=== PATIENT | female | born 1945 | race Two or more races ===

== ENCOUNTER 2016-08-07 16:58 | Emergency (ER) | payer OTHER, MEDICAID ==
[~2016-08-07] VITALS: Ht 154.9 cm; Wt 59.0 kg
[2016-08-07 17:08] VITALS: BP 150/47
--- NOTE | 2016-08-07 17:35 | Emergency Room Report ---
History of Present Illness General Chief Complaint: Head Injury Present Illness HPI 70 y/o female c/o lac on scalp x 4 hours ago. States she was rolling out of bed and scraped her head against the edge of her night stand. States she didn't really hit her head, more so, she just caught the edge of it. Denies any LOC or any other injury / pain or taking blood thinners. Denies any lower extremity weakness, incontinence, foot drop, saddle anethesia, numbness, paralysis, n/v/f/ c/d, abd pain, back pain, neck pain, photophobia, phonophobia, CP, SOB or headache. Allergies: Coded Allergies: No Known Allergies (Unverified , 08/07/16) Patient History Past Medical History: see triage record Past Surgical History: none Pertinent Family History: none Immunizations: UTD Reviewed Nursing Documentation: PMH: Agreed, PSxH: Agreed Nursing Documentation-PMH Hx Hypertension: No - RA Review of Systems All Other Systems: negative except mentioned in HPI Physical Exam Vital Signs Date Time Temp Pulse Resp B/P Pulse Ox O2 Delivery O2 Flow Rate FiO2 08/07/16 17:08 98.1 67 20 150/47 100 Room Air Sp02 EP Interpretation: reviewed, normal General Appearance: no apparent distress, alert, GCS 15, non-toxic Head: normocephalic Eyes: bilateral eye PERRL, bilateral eye normal inspection ENT: hearing grossly normal, normal pharynx, no angioedema, normal voice, TMs + canals normal Neck: full range of motion, supple, supple/symm/no masses Respiratory: chest non-tender, lungs clear, normal breath sounds, speaking full sentences Cardiovascular #1: regular rate, rhythm, no edema Musculoskeletal: back normal, gait/station normal, normal range of motion, non- tender Neurologic: alert, oriented x3, responsive, 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 Judge my supervising physician with whom patient management has been discussed with. Diagnostic Impression: Primary Impression: Laceration of scalp Qualified Codes: S01.01XA - Laceration without foreign body of scalp, initial encounter ER Course Pt. presents to the ED c/o scalp laceration Ddx considered but are not limited to laceration, contusion, abrasion, puncture , LOC, cerebral hemorrhage, spinal fx, hip fracture Vital signs: are WNL, pt. is afebrile H&PE are most consistent with laceration of scalp ORDERS: none required at this time, the diagnosis is clinical ED INTERVENTIONS: Wound irrigated with copious amount of NS. Skin akash x 3 applied. DISCHARGE: At this time pt. is stable for d/c to home. Will provide printed patient care instructions, and any necessary prescriptions. Care plan and follow up instructions have been discussed with the patient prior to discharge. Last Vital Signs Date Time Temp Pulse Resp B/P Pulse Ox O2 Delivery O2 Flow Rate FiO2 08/07/16 18:08 68 16 146/72 98 Room Air 08/07/16 17:08 98.1 Status: unchanged Disposition: HOME, SELF-CARE Condition: Stable Patient Instructions: Stitches, Akash, or Adhesive Wound Closure Additional Instructions: Keep wound clean and dry. Follow up with PCP in 3-5 days for wound check. Avoid sun exposure to minimize scarring. Patient advised that they can take a shower or bath, but be sure to pat the area dry with a towel afterward. Patient should come back sooner if they experience any red areas that get bigger, more swollen , have pus draining from wound, or if the site becomes more painful. Advised patient to go to the ER immediately if you experience a headache that is sudden and becomes severe within a few seconds or minutes, or that could be described as "the worst headache of your life", or if headache is severe and occurs with a fever or stiff neck, occurs with a seizure, personality changes, confusion, or passing out, begins quickly after strenuous exercise or minor injury, or if headache is new and occurs with weakness, numbness, or difficulty seeing. LAMBERTO BENITEZ August 07, 2016 17:35
[2016-08-07 18:08] VITALS: BP 146/72
== END 2016-08-07 18:11 | disposition home or self-care (01) ==
LOC: EMR 17:20
DX: S01.01XA Laceration without foreign body of scalp, initial encounter (principal); W22.8XXA Striking against or struck by other objects, initial encounter; Y93.9 Activity, unspecified; Y92.9 Unspecified place or not applicable

== ENCOUNTER 2016-08-13 10:36 | Emergency (ER) | payer OTHER, MEDICAID ==
[~2016-08-13] VITALS: Ht 157.5 cm; Wt 60.8 kg
[2016-08-13 10:51] VITALS: BP 123/81
[2016-08-13 10:57] VITALS: BP 123/81
--- NOTE | 2016-08-16 13:33 | Emergency Room Report ---
History of Present Illness General Chief Complaint: Wound Recheck/Suture Removal Source: Patient Present Illness HPI Patient presents with recheck of her scalp laceration This was stapled 4 days ago at this facility denies any discharge denies any headache Denies any visual changes Feels that the laceration is healing well This was initially lacerated on a cabinet door Patient presents for evaluation Allergies: Coded Allergies: No Known Allergies (Unverified , 08/07/16) Patient History Past Medical History: see triage record Pertinent Family History: none Reviewed Nursing Documentation: PMH: Agreed, PSxH: Agreed Review of Systems All Other Systems: negative except mentioned in HPI Physical Exam Vital Signs Date Time Temp Pulse Resp B/P Pulse Ox O2 Delivery O2 Flow Rate FiO2 08/13/16 10:43 98.1 76 16 123/81 99 Room Air Sp02 EP Interpretation: reviewed, normal General Appearance: well appearing, no apparent distress Head: normocephalic, other - Akash in place right top parietal area Eyes: bilateral eye EOMI, bilateral eye PERRL ENT: normal pharynx, no angioedema Neck: supple Respiratory: normal inspection, lungs clear Cardiovascular #1: normal inspection Musculoskeletal: normal inspection Neurologic: alert, oriented x3, responsive Skin: other - Laceration healing well akash in place no fluctuance Medical Decision Making Diagnostic Impression: Primary Impression: Encounter for wound re-check ER Course The area in question appears to be healing well this is only 4 days out and there requires to be further healing Akash were left in place and patient will return in the next 4 days for removal Last Vital Signs Date Time Temp Pulse Resp B/P Pulse Ox O2 Delivery O2 Flow Rate FiO2 08/13/16 10:57 98.1 16 123/81 99 Room Air 08/13/16 10:43 76 Status: unchanged Disposition: HOME, SELF-CARE Condition: Stable Referrals: [facility],REFERRING (PCP) Patient Instructions: Wound Check Additional Instructions: The area appears to be healing well, please allow 5 more days for a full improvement and return for staple removal GIANCARLO HENDERSON D.O. August 16, 2016 13:33
== END 2016-08-13 10:57 | disposition home or self-care (01) ==
LOC: EMR 10:45
DX: S01.01XD Laceration without foreign body of scalp, subsequent encounter (principal); X58.XXXD Exposure to other specified factors, subsequent encounter; Y99.9 Unspecified external cause status
CPT/HCPCS: 99281

== ENCOUNTER 2016-08-16 14:59 | Emergency (ER) | payer OTHER, MEDICAID ==
[~2016-08-16] VITALS: Ht 157.5 cm; Wt 60.8 kg
[2016-08-16 15:11] VITALS: BP 149/74
[2016-08-16] MEDS ORDERED: TYLENOL325 MG ORAL (15:21)
[2016-08-16 15:27] VITALS: BP 149/74
--- NOTE | 2016-08-18 08:03 | Emergency Room Report ---
History of Present Illness General Chief Complaint: Pain Source: Patient Present Illness HPI Patient presents for staple removal Reports that she had initial laceration to the scalp from a cabinet While here the patient also states that since the fall she had left knee pain Back pain Right hip pain Patient has been ambulatory Denies any chest pain or shortness of breath Denies any focal weakness Allergies: Coded Allergies: No Known Allergies (Unverified , 08/07/16) Patient History Past Medical History: see triage record Pertinent Family History: none Reviewed Nursing Documentation: PMH: Agreed, PSxH: Agreed Review of Systems All Other Systems: negative except mentioned in HPI Physical Exam Vital Signs Date Time Temp Pulse Resp B/P Pulse Ox O2 Delivery O2 Flow Rate FiO2 08/16/16 15:04 98.4 75 15 149/74 98 Room Air Sp02 EP Interpretation: reviewed, normal General Appearance: well appearing, no apparent distress Head: normocephalic - [address] healing well Eyes: bilateral eye EOMI, bilateral eye PERRL ENT: hearing grossly normal, normal pharynx, TMs + canals normal, uvula midline Neck: full range of motion, supple, no meningismus, no bony tend Respiratory: lungs clear, normal breath sounds, no rhonchi, no respiratory distress, no retraction, no accessory muscle use Cardiovascular #1: normal peripheral pulses, regular rate, rhythm, no edema, no gallop, no JVD, no murmur Gastrointestinal: normal bowel sounds, non tender, soft, no mass, no organomegaly, non-distended, no guarding, no hernia, no pulsatile mass, no rebound Genitourinary: no CVA tenderness Musculoskeletal: other - Patient subjectively had pain to the left knee, no obvious effusion, no ecchymosis, midline CTL spine no obvious step-offs. 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 as tested, motor strength/ tone normal, sensory intact Psychiatric: mood/affect normal Skin: normal color, no rash, warm/dry, palpation normal Lymphatic: normal inspection, no adenopathy Medical Decision Making Diagnostic Impression: Primary Impression: staple removal Additional Impression: knee sprain ER Course Patient's akash in the scalp removed in the appropriate manner No obvious dehiscence patient tolerated procedure well Evaluation does not reveal any obvious likely acute fractures The patient is advised to follow closely with primary physician Last Vital Signs Date Time Temp Pulse Resp B/P Pulse Ox O2 Delivery O2 Flow Rate FiO2 08/16/16 15:27 98.4 15 149/74 98 Room Air 08/16/16 15:04 75 Status: improved Disposition: HOME, SELF-CARE Condition: Improved Scripts Acetaminophen (Tylenol) 325 Mg Tablet 650 MG ORAL Q8HR Y for Prn Pain/Headache/Temp > 101, #20 TAB 0 Refills Prov: GIANCARLO HENDERSON D.O. 08/16/16 Referrals: NON PHYSICIAN (PCP) Patient Instructions: Knee Sprain, [id number], Wound Closure Removal Additional Instructions: Patient is provided with the discharge instructions notified to follow up with primary doctor in the next 2-3 days otherwise return to the er with any worsening symptoms. Please note that this report is being documented using [employer] technology. This can lead to erroneous entry secondary to incorrect interpretation by the dictating instrument. GIANCARLO HENDERSON D.O. Aug 18, 2016 08:03
== END 2016-08-16 15:27 | disposition home or self-care (01) ==
LOC: EMR 15:15
DX: S01.01XD Laceration without foreign body of scalp, subsequent encounter (principal); S83.92XA Sprain of unspecified site of left knee, initial encounter; M54.9 Dorsalgia, unspecified; M25.551 Pain in right hip; W17.89XA Other fall from one level to another, initial encounter; Y93.9 Activity, unspecified; Y92.9 Unspecified place or not applicable
CPT/HCPCS: 99283

== ENCOUNTER 2018-01-09 13:42 | Emergency (ER) | payer OTHER, MEDICAID ==
[~2018-01-09] VITALS: Ht 152.4 cm; Wt 63.5 kg
[~2018-01-09 13:42] MED LIST: TYLENOL325 MG ORAL
[2018-01-09 14:02] VITALS: BP 159/82
--- NOTE | 2018-01-09 14:02 | Emergency Room Report ---
History of Present Illness General Chief Complaint: Multiple Trauma/Fall Source: Patient (Julian Albarran) Present Illness HPI 72-year-old female patient presents ER complaining of right knee pain status post injury earlier today. Patient reports that she was walking when she tripped and fell over some uneven sidewalk. Patient is ambulating with help of the cane that she had at home, states she does not normally use a cane. Reports that she took 1000 mg of Tylenol about 2 hours ago. Reports bruising at site of injury. Denies bleeding. Reports pain with ambulation. Denies hitting her head or loss of consciousness. Denies FOOSH injury. Denies fever, chest pain, shortness of breath. Denies ooziness or syncope prior to fall. reports took an Uber to ER. Denies history of GERD or acid reflux or gastric ulcer. Reports ate lunch earlier today. (Julian Albarran) Allergies: Coded Allergies: No Known Allergies (Unverified , 08/07/16) Patient History Past Medical History: see triage record Reviewed Nursing Documentation: PMH: Agreed; PSxH: Agreed (Julian Albarran) Nursing Documentation-PMH Past Medical History: No History, Except For Hx Cardiac Problems: No - RA Hx Hypertension: No Hx Pacemaker: No Hx Asthma: No Hx COPD: No Hx Diabetes: No Hx Cancer: No Hx Gastrointestinal Problems: No Hx Dialysis: No History Of Psychiatric Problem: No Hx Neurological Problems: No Hx Cerebrovascular Accident: No Hx Seizures: No (Julian Albarran) Review of Systems All Other Systems: negative except mentioned in HPI (Julian Albarran) Physical Exam Vital Signs Date Time Temp Pulse Resp B/P (MAP) Pulse Ox O2 Delivery O2 Flow Rate FiO2 01/09/18 13:50 97.9 81 16 159/82 95 Room Air 97.9 Sp02 EP Interpretation: reviewed, normal General Appearance: well appearing, no apparent distress, alert, GCS 15, non- toxic Head: normocephalic, atraumatic Eyes: bilateral eye normal inspection, bilateral eye PERRL ENT: hearing grossly normal, normal pharynx, no angioedema, normal voice, uvula midline, moist mucus membranes Neck: full range of motion Respiratory: lungs clear, normal breath sounds, no rhonchi, no respiratory distress, no accessory muscle use, no wheezing, speaking full sentences Cardiovascular #1: regular rate, rhythm, no edema Cardiovascular #2: 2+ dorsalis pedis (R), 2+ dorsalis pedis (L) Musculoskeletal: back normal, digits/nails normal, gait/station normal, normal range of motion - with pain, no calf tenderness, pelvis stable, Pennie's Sign negative, swelling - proximal anterior knee with ecchymosis, other - NVI, no laxity with varus or valgus stress, no erythema or warmth to touch, soft compartments, patella deformity noted; no snuffbox tenderness bilaterally, tender - proximal anterior knee Neurologic: alert, oriented x3, responsive, motor strength/tone normal, sensory intact Psychiatric: mood/affect normal Skin: no rash (Julian Albarran) Medical Decision Making PA Attestation Dr. Esteban is my supervising Physician whom patient management has been discussed with. (Julian Albarran) Diagnostic Impression: Primary Impression: Patella fracture ER Course Pt. presents to the ED c/o right knee pain status post injury. Ddx considered but are not limited to fracture, sprain, strain, contusion, dislocation. No erythema, no warmth to touch, no fever, nontoxic appearing, low suspicion for septic joint. Soft compartments, no pulselessness, no pallor, no paresthesias, low suspicion for compartment syndrome at this time. Vital signs: are WNL, pt. is afebrile Ordered X-ray and pain medication. ER COURSE Provided with ice for knee and Ibuprofen for pain. An X-ray of the right knee shows patella fracture per the preliminary reading. Informed patient to followup with PCP and get referral to ortho specialist. Likely need surgery. Knee immobilizer was applied to the right knee and was checked afterwards by me showing good alignment and support with distal neurovascular functioning intact. Crutches provided. Patient instructed on RICE method: rest, ice, compression, elevation. Patient instructed on rest, ice and heat. Patient instructed to be NWB Contact information for orthopedic urgent care provided, follow-up with urgent care if unable to followup with primary care provider and get referral to application specialist. Followup with primary care provider. Discuss referral to ortho/pain management/ PT as needed. Discuss further imaging with MRI/CT as needed. DISCHARGE: -Rx provided for [place] #10 for pain, CURES reviewed. At this time pt. is stable for d/c to home. Patient is resting comfortably, in no acute distress, nontoxic appearing, talking without difficulty. Will provide printed patient care instructions, and any necessary prescriptions. Patient instructed to follow with primary care provider in 3 - 5 days and to request further follow-up as needed. Care plan and follow up instructions have been discussed with the patient prior to discharge. Take medications as directed. Patient questions asked and answered. Patient reports understanding and agreement to treatment plan. ER precautions given, patient instructed to return to ER immediately for any new or worsening of symptoms. - Please note that this Emergency Department Report was dictated using [employer] technology software, occasionally this can lead to erroneous entry secondary to interpretation by the dictation equipment. (Julian Albarran) Other X-Ray Diagnostic Results Other X-Ray Diagnostic Results : X-Ray ordered: right knee # of Views/Limited Vs Complete: 3 View Indication: Pain EP Interpretation: Yes PA Xray: Interpretation reviewed, by supervising MD, and agrees with findings. Interpretation: no dislocation, other - patella fracture Impression: Other - patella fracture PA Scribe Text Von ERICC (Julian Albarran) Other X-Ray Diagnostic Results : Electronically Signed by: Scribe documentation reviewed by me and is accurate, Selvin Esteban MD (Selvin Esteban MD) Last Vital Signs Date Time Temp Pulse Resp B/P (MAP) Pulse Ox O2 Delivery O2 Flow Rate FiO2 01/09/18 13:50 97.9 81 16 159/82 95 Room Air 97.9 Status: improved (Julian Albarran) Disposition: HOME, SELF-CARE Condition: Scripts Hydrocodone Bit/Acetaminophen 5-325* (NORCO 5-325*) 1 Each Tablet 1 TAB ORAL Q6H PRN for For Pain, #10 TAB 0 Refills Prov: Julian Albarran 01/09/18 Patient Instructions: Patellar Fracture, Adult Additional Instructions: Patient instructed to follow up with primary care provider and discuss further referral to orthopedics/physical therapy/pain management as needed. If unable to followup with PCP, followup with orthopedic urgent care in 5-7 days , call to schedule appointment. Patient instructed on RICE method: rest, ice, compression, elevation. Patient instructed to NWB. Take medications as directed. Patient questions asked and answered. ER precautions given, patient instructed to return to ER immediately for any new or worsening of symptoms. [facility] [id number] [facility], [address] [email or web address] Julian Albarran Jan 09, 2018 14:02 Selvin Esteban MD Jan 11, 2018 07:01
[2018-01-09] MEDS ORDERED: NORCO 5-325 TA1 EACH ORAL (14:33)
--- NOTE | 2018-01-09 14:45 | Diagnostic Imaging Report ---
Indication: Pain Knee pain/trauma 3 views of the right knee were obtained. Findings: Comminuted fracture of the patella demonstrated. Soft tissue swelling and joint effusion noted. Bones are osteopenic. No malalignment identified. IMPRESSION: Acute comminuted fracture of the patella
[2018-01-09 15:00] VITALS: BP 144/78
== END 2018-01-09 15:00 | disposition home or self-care (01) ==
LOC: EMR 15:00
DX: S82.001A Unspecified fracture of right patella, initial encounter for closed fracture (principal); W01.0XXA Fall on same level from slipping, tripping and stumbling without subsequent striking against object, initial encounter; Y93.01 Activity, walking, marching and hiking; Y92.480 Sidewalk as the place of occurrence of the external cause
CPT/HCPCS: 99283

== ENCOUNTER 2019-04-27 16:19 | Emergency (ER) | payer OTHER, MEDICAID ==
[~2019-04-27] VITALS: Ht 157.5 cm; Wt 63.0 kg
[~2019-04-27 16:19] MED LIST changes: +NORCO 5-325 TA1 EACH ORAL
[2019-04-27 16:25] VITALS: BP 160/86
--- NOTE | 2019-04-27 16:35 | NUR ---
ED Nurse Note: PT WALKED IN DUE LEFT SIDE TOOTH PAIN X 2 DAYS. NO ACTIVE BLEEDING. DENIES FEVER OR CHILLS. AAOX 4 AND AMBULATORY.
[2019-04-27] MEDS ORDERED: TRAMADOL HCL50 MG ORAL (17:05)
[2019-04-27] MEDS ORDERED: PENICILLIN V P500 MG ORAL (17:05)
[2019-04-27 17:16] VITALS: BP 154/85
--- NOTE | 2019-04-27 17:16 | NUR ---
ER DISCHARGE NOTE: Patient is cleared to be discharged per ERMD, pt is aox4, on room air, with stable vital signs. pt was given dc and prescription instructions, pt was able to verbalize understanding, pt id band removed. pt is able to ambulate with steady gait. pt took all belongings.
--- NOTE | 2019-05-02 08:42 | Emergency Room Report ---
History of Present Illness General Chief Complaint: Toothache Source: Patient Present Illness HPI Patient is a 73-year-old female who presents after increased left-sided earache and jaw pain. Reports having increased pain with movement. Had noticed some increased swelling to the lateral aspect of the jaw. Reports having some increased pain with range of motion. Denies any chest pain or shortness of breath. Allergies: Coded Allergies: No Known Allergies (Unverified , 08/07/16) Patient History Past Medical History: see triage record Reviewed Nursing Documentation: PMH: Agreed; PSxH: Agreed Nursing Documentation-PMH Past Medical History: No History, Except For Hx Cardiac Problems: No - RA Hx Hypertension: No Hx Pacemaker: No Hx Asthma: No Hx COPD: No Hx Diabetes: No Hx Cancer: No Hx Gastrointestinal Problems: No Hx Dialysis: No Hx Neurological Problems: No Hx Cerebrovascular Accident: No Hx Seizures: No Review of Systems All Other Systems: negative except mentioned in HPI Physical Exam General Appearance: well appearing, no apparent distress, alert, GCS 15 Head: normocephalic, atraumatic ENT: hearing grossly normal, normal voice, other - Slight swelling to the left upper molar area without evident abscess Neck: full range of motion, supple Respiratory: no respiratory distress, speaking full sentences Cardiovascular #1: normal inspection Musculoskeletal: no calf tenderness Neurologic: normal gait Psychiatric: mood/affect normal Skin: no rash Medical Decision Making Diagnostic Impression: Primary Impression: Toothache ER Course Patient presented for dental pain. Differential diagnosis included but was not limited to trigeminal neuralgia, dental abscess, dry socket, osteomyelitis, nerve injury. The patient was noted to have a benign exam.Patient does not appear to require any imaging at this time. The patient is advised to follow up with dentist or oral surgeon in 1-2 days. Patient is advised to return if any worsening condition or if any changes in status that are concerning. Status: improved Disposition: HOME, SELF-CARE Condition: Stable Scripts Penicillin V Potassium* (PENVK*) 500 Mg Tablet 500 MG ORAL TWICE A DAY, #14 TAB Prov: Samy Campa MD 04/27/19 Tramadol Hcl* (ULTRAM*) 50 Mg Tablet 50 MG ORAL Q6H PRN for For Pain, #10 TAB 0 Refills Prov: Samy Campa MD 04/27/19 Referrals: [facility],REFERRING (PCP) Patient Instructions: Dental Pain Samy Campa MD May 02, 2019 08:42
== END 2019-04-27 17:16 | disposition home or self-care (01) ==
LOC: EMR 17:13
DX: K08.89 Other specified disorders of teeth and supporting structures (principal); H92.02 Otalgia, left ear
CPT/HCPCS: 99282